=== PATIENT | female | born 1940 | race Caucasian/White ===

== ENCOUNTER → 2016-08-07 | Day surgery (SDC) | payer BC ==
[~2016-08-07] VITALS: Ht 162.6 cm; Wt 63.6 kg
[~2016-08-07] MED LIST: ASPI81TA28 PO; ATOR-54 PO; CHOL1000 PO; PROPOFOL IV EMULSION 10 MG/ML 20 ML VIAL IV ONE; SODIUM CHLORIDE 0.9% 500ML 500 ML IV ONE; VSC/5 PO
[2016-08-07 10:12] VITALS: Ht 162.6 cm; Wt 63.6 kg
--- NOTE | 2016-08-07 11:22 | Endo History and Physical ---
History & Physical Date of Service: Aug 07, 2016. Chief Complaint: 10 YEAR FOLLOW UP Referring Physician: DR HONG History of Present Illness 76 yo CF who presents for screening colonoscopy. Past Surgical History Hx Cardiac Surgery: No Hx Internal Defibrillator: No Hx Pacemaker: No Hx Abdominal Surgery: No Hx of Implantable Prosthesis: No Hx Post-Op Nausea and Vomiting: Yes Hx Cancer Surgery: No Hx Thoracic Surgery: No Hx Orthopedic: No Hx Urinary Tract Surgery: No Family History None Social History Smoking Status: Never Smoker Hx Substance Use: No Hx Alcohol Use: No Allergies Coded Allergies: Penicillins (Verified Allergy, Unknown, RASH/HIVES, 08/07/16) Sulfa Antibiotics (Verified Allergy, Unknown, RASH/HIVES, 08/07/16) Current Medications Reported Home Medications Medications Dose Route/Sig Max Daily Dose Days Date Category Vitamin D3 (Cholecalciferol) 1,000 Unit Tab 1 Tab PO HS 07/18/16 Reported Vesicare (Solifenacin) 5 Mg Tab 5 Mg PO QAM 07/18/16 Reported Lipitor (Atorvastatin) 20 Mg Tab 20 Mg PO HS 07/18/16 Reported Aspirin Ec (Aspirin) 81 Mg Tab 81 Mg PO QAM 07/18/16 Reported Vital Signs Weight (Kilograms): 63.64 Height (Feet): 5 Height (Inches): 4 Date Time Temp Pulse Resp B/P Pulse Ox O2 Delivery O2 Flow Rate FiO2 08/07/16 10:22 36.6 82 18 166/81 98 Room Air Physical Exam General Appearance: WD/WN, no apparent distress Respiratory/Chest: Auscultation: breath sounds normal Cardiovascular: Heart Auscultation: RRR Abdomen: Bowel Sounds: normal Inspection & Palpation: soft, non-distended, no tenderness, guarding & rebound Assessment and Plan Assessment: 76 yo CF who presents for screening colonoscopy. Plan: Proceed with colonoscopy.
--- NOTE | 2016-08-07 11:44 | Discharge Instructions ---
Endoscopy Patient Instructions Date / Procedure(s) Performed Aug 07, 2016. Colonoscopy Allergy Information Coded Allergies: Penicillins (Verified Allergy, Unknown, RASH/HIVES, 08/07/16) Sulfa Antibiotics (Verified Allergy, Unknown, RASH/HIVES, 08/07/16) Discharge Date / Findings Aug 07, 2016. Ascending colon polyp Internal hemorrhoids Medication Instructions OK to resume all medications today as prescribed Reported Home Medications Medications Dose Route/Sig Max Daily Dose Days Date Category Vitamin D3 (Cholecalciferol) 1,000 Unit Tab 1 Tab PO HS 07/18/16 Reported Vesicare (Solifenacin) 5 Mg Tab 5 Mg PO QAM 07/18/16 Reported Lipitor (Atorvastatin) 20 Mg Tab 20 Mg PO HS 07/18/16 Reported Aspirin Ec (Aspirin) 81 Mg Tab 81 Mg PO QAM 07/18/16 Reported Provider Instructions Activity Restrictions - No exercising or heavy lifting for 24 hours. - Do not drink alcohol the day of the procedure. - Do not drive a car or operate machinery until the day after the procedure. - Do not make any important decisions or sign important papers in 24 hours after the procedure. Following Day: - Return to full activity which may include returning to work/school. Diet Start your diet with liquids and light foods (jello, soup, juice, toast). Then eat your usual diet if not nauseated. Treatment For Common After Affects For mild abdominal pain, bloating, or excessive gas: - Rest - Eat lightly - Lie on right side Follow-Up Information Follow-up with DR HONG as scheduled Anesthesia Information What You Should Know You have had a procedure that required some medicine to reduce anxiety and discomfort. This treatment is called moderate sedation. After receiving the treatment, you may be sleepy, but you will be able to breathe on your own. The effects of the treatment may last for several hours. Follow these instructions along with Activity/Diet recommendations noted above: * Do NOT do anything where dizziness or clumsiness would be dangerous. * Rest quietly at home today, then you can be up and about tomorrow. * Have a responsible person stay with you the rest of today. * You may have had an I.V. today. If so, you may take the dressing off later today. Recommendations Call your doctor if: * Trouble breathing * Continuous vomiting for more than 24 hours * Temperature above 101 degrees * Severe abdominal pain or bloating * Pain not relieved by pain medicine ordered * There is increased drainage or redness from any incision * A large amount of rectal bleeding greater than 2-3 tablespoons. (If you had a polyp/s removed or have hemorrhoids, a small amount of blood - from the rectum is to be expected.) * You have any unanswered questions or concerns. IN THE EVENT OF A SERIOUS EMERGENCY, GO TO THE NEAREST EMERGENCY ROOM Your discharge instructions were prepared by provider Patrick Carter. Patient Instructions Signature Page Mckenna Bonilla Patient (or Guardian) Signature/Date: I have read and understand the instructions given to me by my caregivers. Caregiver/RN/Doctor Signature/Date: The above-named patient and/or guardian has received patient instructions on this date. + Original Patient Signature Page (only) stays with chart. Please make copy for patient.
--- NOTE | 2016-08-07 11:48 | GI REPORT ---
Procedure Date: 08/07/2016 11:23 AM Procedure: Colonoscopy Indications: Screening for colorectal malignant neoplasm Medicines: Monitored Anesthesia Care Complications: No immediate complications. Estimated Blood Loss: Estimated blood loss: none. Procedure: Pre-Anesthesia Assessment: - Prior to the procedure, a History and Physical was performed, and patient medications and allergies were reviewed. The patient's tolerance of previous anesthesia was also reviewed. The risks and benefits of the procedure and the sedation options and risks were discussed with the patient. All questions were answered, and informed consent was obtained. Prior Anticoagulants: The patient has taken aspirin, last dose was 1 day prior to procedure. ASA Grade Assessment: II - A patient with mild systemic disease. After reviewing the risks and benefits, the patient was deemed in satisfactory condition to undergo the procedure. After I obtained informed consent, the scope was passed under direct vision. Throughout the procedure, the patient's blood pressure, pulse, and oxygen saturations were monitored continuously. The On-site loaner was introduced through the anus and advanced to the terminal ileum. The colonoscopy was performed without difficulty. The patient tolerated the procedure well. The quality of the bowel preparation was good. The terminal ileum, ileocecal valve, appendiceal orifice, and rectum were photographed. Findings: A 5 mm polyp was found in the ascending colon. The polyp was sessile. The polyp was removed with a hot snare. Resection and retrieval were complete. Non-bleeding internal hemorrhoids were found during retroflexion. The hemorrhoids were small. Impression: - One 5 mm polyp in the ascending colon, removed with a hot snare. Resected and retrieved. - Non-bleeding internal hemorrhoids. Recommendation: - Resume previous diet. - Continue present medications. - Repeat colonoscopy for surveillance based on pathology results. - Return to primary care physician as previously scheduled. Patrick Carter DO 08/07/2016 11:47:21 AM This report has been signed electronically. Note Initiated On: 08/07/2016 11:23 AM
[2016-08-07 12:08] VITALS: BP 116/59; PULSE 64; O2SAT 98
--- NOTE | 2016-08-07 12:45 | Anesthesiology Progress Note ---
Anesthesia Post Op Note Date & Time Aug 07, 2016 at 12:44 Vital Signs Pain Intensity: 0 Vital Signs Past 12 Hours Date Time Temp Pulse Resp B/P Pulse Ox O2 Delivery O2 Flow Rate FiO2 08/07/16 12:08 64 20 116/59 98 Room Air 08/07/16 11:58 72 20 125/59 100 Room Air 08/07/16 11:44 79 20 126/55 98 Room Air 08/07/16 10:22 36.6 82 18 166/81 98 Room Air Notes Mental Status: alert / awake / arousable Nausea / Vomiting: adequately controlled Pain: adequately controlled Airway Patency, RR, SpO2: stable & adequate BP & HR: stable & adequate Hydration State: stable & adequate Anesthetic Complications: no major complications apparent
== END | disposition home or self-care (01) ==
LOC: C.GI 09:37
PROVIDERS: ATTEND Internal Medicine
DX: Z12.11 Encounter for screening for malignant neoplasm of colon (principal); D12.2 Benign neoplasm of ascending colon; K64.8 Other hemorrhoids; Z88.0 Allergy status to penicillin; Z88.2 Allergy status to sulfonamides; Z68.24 Body mass index [BMI] 24.0-24.9, adult; Z98.890 Other specified postprocedural states

== ENCOUNTER → 2016-12-20 | Outpatient (CLI) | payer BC ==
[~2016-12-20] MED LIST changes: -PROPOFOL IV EMULSION 10 MG/ML 20 ML VIAL IV ONE; -SODIUM CHLORIDE 0.9% 500ML 500 ML IV ONE
--- NOTE | 2016-12-20 13:11 | MAMMOGRAPHY REPORT ---
BILATERAL DIGITAL SCREENING MAMMOGRAM WITH CAD: 12/20/2016 CLINICAL HISTORY: Routine screening. Patient has no complaints. TECHNIQUE: Current study was also evaluated with a Computer Aided Detection (CAD) system. Bilatera l CC and MLO views were obtained. COMPARISON: Comparison is made to exams dated: 12/19/2015 mammogram, 12/02/2014 mammogram, 09/30/2013 m ammogram, 09/24/2012 mammogram, 09/19/2011 mammogram, and 09/17/2010 mammogram - [facility]. BREAST COMPOSITION: There are scattered areas of fibroglandular density in both breasts. FINDINGS: No suspicious masses, calcifications, or areas of architectural distortion are noted in e ither breast. There has been no significant interval change compared to prior exams. Asymmetries in the right superior breast on the MLO view are stable compared to prior exams including the 2013 and 2008 exams. IMPRESSION: ACR BI-RADS CATEGORY 2: BENIGN There is no mammographic evidence of malignancy. A 1 year screening mammogram is recommended. The p atient will receive written notification of the results. Approximately 10% of breast cancers are not detected with mammography. A negative mammographic repor t should not delay biopsy if a clinically suggestive mass is present. Yina Hayes M.D. ah/:12/20/2016 12:19:54 Learning Officer: Antonieta MURRAY(Maame)(M), [facility] letter sent: Normal 1/2 BI-RADS Code: ACR BI-RADS Category 2: Benign
== END | disposition home or self-care (01) ==
LOC: C.MAMM 09:21
PROVIDERS: ATTEND Internal Medicine
DX: Z12.31 Encounter for screening mammogram for malignant neoplasm of breast (principal)

== ENCOUNTER → 2017-01-29 | Outpatient (CLI) | payer BC ==
[2017-01-29 14:16] LABS: URINE APPEARANCE CLEAR (CLEAR); URINE BILIRUBIN NEG (NEG); URINE COLOR YELLOW; URINE EPITHELIAL CELL AUTO >30 /lpf (0-5); URINE NITRITE NEG (NEG); URINE PH 5.5 (4.5-7.5); URINE SPECIFIC GRAVITY 1.021 (1.000-1.030); UROBILINOGEN NEG (NEG); ZZUR CULT IF INDIC CLEAN CATCH NO
[2017-01-29 14:20] LABS: MANUAL MICROSCOPIC REQUIRED? NO; REVIEW REQ? NO
== END | disposition home or self-care (01) ==
LOC: C.LABBC 08:06
PROVIDERS: ATTEND Internal Medicine
DX: R39.15 Urgency of urination (principal); N39.46 Mixed incontinence; R35.0 Frequency of micturition; E55.9 Vitamin D deficiency, unspecified; E05.90 Thyrotoxicosis, unspecified without thyrotoxic crisis or storm; E78.5 Hyperlipidemia, unspecified